=== PATIENT | male | born 1970 | race African-American/Black ===

== ENCOUNTER 2017-05-14 22:20 | Observation (INO) | payer OTHER ==
[2017-05-14 22:39] VITALS: BMI 23.7
--- NOTE | 2017-05-14 23:12 | PDOC ---
History of Present Illness - General History Source: Patient Exam Limitations: No Limitations <Keisha Al - Last Filed: 05/15/17 02:03> <Gretchen Mancilla - Last Filed: 05/15/17 02:48> - General Chief Complaint: Respiratory Stated Complaint: CHEST PAIN Time Seen by Provider: 05/14/17 22:42 - History of Present Illness Initial Comments: 05/14/17 23:34 The patient is a 46 year old male with history significant for anemia brought in by EMS complaining of chest tightness and shortness of breath that began this evening. He also reports feeling lightheaded this evening and sat down on the couch. He states he "fainted" while lying down, unclear whether he actually lost consciousness. On evaluation, his symptoms are resolved. He denies any physical complaint. Does not follow with a PCP (Keisha Al) Past History <Keisha Al - Last Filed: 05/15/17 02:03> - Past Medical History Anemia: Yes COPD: No - Suicide/Smoking/Psychosocial Hx Smoking History: Current some day smoker Information on smoking cessation initiated: No <Gretchen Mancilla - Last Filed: 05/15/17 02:48> - Past Medical History Allergies/Adverse Reactions: Allergies Allergy/AdvReac Type Severity Reaction Status Date / Time No Known Allergies Allergy Verified 05/14/17 22:34 Home Medications: Ambulatory Orders Ferrous Sulfate [Feosol] 325 mg PO DAILY 05/14/17 Review of Systems - Review of Systems Able to Perform ROS?: Yes <Keisha Al - Last Filed: 05/15/17 02:03> <Gretchen Mancilla - Last Filed: 05/15/17 02:48> - Review of Systems Comments:: 05/14/17 23:41 CONSTITUTIONAL: Absent: fever, chills, diaphoresis, generalized weakness, malaise, loss of appetite HEENT: Absent: rhinorrhea, nasal congestion, throat pain, throat swelling, difficulty swallowing, mouth swelling, ear pain, eye pain, visual Changes CARDIOVASCULAR: Present: chest pain (resolved), lightheadedness (resolved) Absent: palpitations, irregular heart rate, peripheral edema RESPIRATORY: Absent: cough, shortness of breath, dyspnea with exertion, orthopnea, wheezing, stridor, hemoptysis GASTROINTESTINAL: Absent: abdominal pain, abdominal distension, nausea, vomiting, diarrhea, constipation, melena, hematochezia GENITOURINARY: Absent: dysuria, frequency, urgency, hesitancy, hematuria, flank pain, genital pain MUSCULOSKELETAL: Absent: myalgia, arthralgia, joint swelling SKIN: Absent: rash, itching, pallor HEMATOLOGIC/IMMUNOLOGIC: Absent: easy bleeding, easy bruising, lymphadenopathy, frequent infections ENDOCRINE: Absent: unexplained weight gain, unexplained weight loss, heat intolerance, cold intolerance NEUROLOGIC: Absent: headache, focal weakness or paresthesias, dizziness, unsteady gait, seizure, mental status changes, bladder or bowel incontinence PSYCHIATRIC: Absent: anxiety, depression, suicidal or homicidal ideation, hallucinations. (Keisha Al) *Physical Exam <Keisha Al - Last Filed: 05/15/17 02:03> <Gretchen Mancilla - Last Filed: 05/15/17 02:48> - Vital Signs Last Vital Signs Temp Pulse Resp BP Pulse Ox 98.1 F 78 18 123/68 100 05/14/17 22:35 05/14/17 22:35 05/14/17 22:35 05/14/17 22:35 05/14/17 22:35 - Physical Exam Comments: 05/14/17 23:42 GENERAL: Well developed, well nourished. Awake and alert. No acute distress. HEENT: Normocephalic, atraumatic. PERRLA, EOMI. No conjunctival pallor. Sclera are non- icteric. Moist mucous membranes. Oropharynx is clear. NECK: Supple. Full ROM. No JVD. Carotid pulses 2+ and symmetric, without bruits. No thyromegaly. No lymphadenopathy. CARDIOVASCULAR: Regular rate and rhythm. No murmurs, rubs, or gallops. Distal pulses are 2+ and symmetric. PULMONARY: No evidence of respiratory distress. Lungs clear to auscultation bilaterally. No wheezing, rales or rhonchi. ABDOMINAL: Soft. Non-tender. Non-distended. No rebound or guarding. No organomegaly. Normoactive bowel sounds. MUSCULOSKELETAL Normal range of motion at all joints. No bony deformities or tenderness. No CVA tenderness. EXTREMITIES: No cyanosis. No clubbing. No edema. No calf tenderness. SKIN: Warm and dry. Normal capillary refill. No rashes. No jaundice. NEUROLOGICAL: Alert, awake, appropriate. Cranial nerves 2-12 intact. No deficits to light touch and temperature in face, upper extremities and lower extremities. No motor deficits in the in face, upper extremities and lower extremities. Normoreflexic in the upper and lower extremities. Normal speech. Toes are down- going bilaterally. Gait is normal without ataxia. PSYCHIATRIC: Cooperative. Good eye contact. Appropriate mood and affect. 05/15/17 02:03 Rectal exam refused. (Keisha Al) Heart Score/ECG Review <Keisha Al - Last Filed: 05/15/17 02:03> <Gretchen Mancilla - Last Filed: 05/15/17 02:48> #1 05/14/17 23:43 EKG obtained 22:32 Normal sinus rhythm 80 bpm. Normal EKG. (Keisha Al) ED Treatment Course - LABORATORY CBC & Chemistry Diagram: 05/14/17 23:48 05/14/17 23:48 <Keisha Al - Last Filed: 05/15/17 02:03> - LABORATORY CBC & Chemistry Diagram: 05/14/17 23:48 05/14/17 23:48 <Gretchen Mancilla - Last Filed: 05/15/17 02:48> - ADDITIONAL ORDERS Additional order review: Laboratory Results 05/15/17 05/14/17 05/14/17 01:43 23:48 23:48 PT with INR 11.50 INR 1.02 D-Dimer 477 Sodium Potassium Chloride Carbon Dioxide Anion Gap BUN Creatinine Creat Clearance w eGFR Random Glucose Calcium Total Bilirubin AST ALT Alkaline Phosphatase Creatine Kinase Creatine Kinase Index CK-MB (CK-2) Troponin I Total Protein Albumin Blood Type O POSITIVE Antibody Screen Negative Crossmatch See Detail 05/14/17 05/14/17 23:48 23:48 PT with INR INR D-Dimer Sodium 140 Potassium 4.2 Chloride 104 Carbon Dioxide 25 Anion Gap 11 BUN 17 Creatinine 1.2 Creat Clearance w eGFR > 60 Random Glucose 90 Calcium 8.7 Total Bilirubin 0.2 AST 23 ALT 18 Alkaline Phosphatase 73 Creatine Kinase 242 Creatine Kinase Index 0.5 CK-MB (CK-2) 1.412 Troponin I < 0.02 Total Protein 7.7 Albumin 3.7 Blood Type Antibody Screen Crossmatch 05/14/17 23:48 RBC 4.06 MCV 59.4 L MCHC 26.6 L RDW 20.7 H MPV 8.6 Neutrophils % 56.4 Lymphocytes % 21.0 Monocytes % 6.7 Eosinophils % 13.9 H Basophils % 2.0 - RADIOLOGY Radiology Studies Ordered: Category Date Time Status CHEST PA & LAT [RAD] Stat Radiology 05/15/17 00:14 Taken - Medications Given in the ED: ED Medications Discontinued Medications Generic Name Dose Route Start Last Admin Trade Name Benedictoq PRN Reason Stop Dose Admin Pantoprazole Sodium 40 mg 05/15/17 02:17 05/15/17 02:23 Protonix Iv IVPUSH 05/15/17 02:18 40 mg ONCE ONE Administration *DC/Admit/Observation/Transfer <Keisha Al - Last Filed: 05/15/17 02:03> - Discharge Dispostion Admit: Yes <Gretchen Mancilla - Last Filed: 05/15/17 02:48> Diagnosis at time of Disposition: Lightheadedness Anemia Qualifiers: Anemia type: iron deficiency Iron deficiency anemia type: other iron deficiency Qualified Code(s): D50.8 - Other iron deficiency anemias - Discharge Dispostion Decision to Admit order Date/Time: Decision to Admit Order Category Date Time Status Decision to Admit to Hospital Routine Admission 05/15/17 02:16 Active - Attestations Scribe Attestion: 05/14/17 23:43 Documentation prepared by Keisha Al, acting as medical receptionist for Gretchen Mancilla MD. (Keisha Al)
[2017-05-15 00:22] LABS: ALBUMIN 3.7 g/dl (3.4-5.0); ALK PHOS 73 U/L (45-117); ANION GAP 11 (8-16); BILIRUBIN,TOTAL 0.2 mg/dL (0.2-1.0); BLOOD UREA NITROGEN 17 mg/dL (7-18); CALCIUM 8.7 mg/dL (8.5-10.1); CHLORIDE 104 mmol/L (98-107); CO2 25 mmol/L (21-32); CREATININE 1.2 mg/dL (0.7-1.3); GLUCOSE,RANDOM 90 mg/dL (74-106); POTASSIUM 4.2 mmol/L (3.5-5.1); SGOT/AST 23 U/L (15-37); SGPT/ALT 18 U/L (12-78); SODIUM 140 mmol/L (136-145); TOT PROT 7.7 g/dl (6.4-8.2)
[2017-05-15 00:30] LABS: INR 1.02 (0.82-1.09); PROTHROMBIN TIME (PATIENT) 11.5 SEC (9.98-11.88)
[2017-05-15 00:37] LABS: EOS % 13.9 % (0-4.5); HEMATOCRIT 24.1 % (35.4-49); MCHC 26.6 g/dl (32.0-35.9); MEAN CELL VOLUME 59.4 fl (80-96); MEAN PLT VOLUME 8.6 fl (7.5-11.1); MONO % 6.7 % (3.8-10.2); NEUT % 56.4 % (42.8-82.8); PLATELET COUNT 333 K/MM3 (134-434); RBC 4.06 M/mm3 (4.00-5.60); RDW 20.7 % (11.9-15.9); WHITE BLOOD COUNT 7.2 K/mm3 (4.0-10.0)
[2017-05-15 00:43] LABS: MCH 15.8 pg (25.7-33.7)
[2017-05-15 00:51] LABS: ADD RBC MORPHOLOGY YES; HEMOGLOBIN 6.4 GM/dL (11.7-16.9)
[2017-05-15 01:05] LABS: ANISOCYTOSIS 2+
[2017-05-15] MEDS ORDERED: PANTOPRAZOLE SODIUM 40 MG VIAL IVPUSH ONE (02:17)
--- NOTE | 2017-05-15 02:39 | HP ---
CHIEF COMPLAINT: weakness HISTORY OF PRESENT ILLNESS: 46 y/o M w/PMH of anemia presents to the ER w/ c/o feeling weakness since earlier today. He repeatedly states "I don't feel well" but does not give much further history. He states he was feeling light-headed earlier today and was laying on couch and is not sure if he fainted but upon waking up to be sure he was ok came to the ER via taxi. Pt reports having anemia in the past and was seen by doctors at [facility] in the past 6 months including GI and heme. He states he had colonoscopy in the last 6 months with no findings. He also complained of abdominal pain after eating M&Ms earlier today. Denies blood in stool or urine. Further history was difficult to obtain. ER course was notable for: (1) protonix, CXR (2) (3) Recent Travel: denies PAST MEDICAL HISTORY: anemia PAST SURGICAL HISTORY: unknown Social History: Smoking: current smoker Alcohol: current drinker Drugs: denies Family History: unknown Allergies No Known Allergies Allergy (Verified 05/14/17 22:34) HOME MEDICATIONS: Home Medications Medication Instructions Recorded Ferrous Sulfate [Feosol] 325 mg PO DAILY 05/14/17 REVIEW OF SYSTEMS Pt not very forthcoming with history. Continuously says "I don't feel well" and does not answer most questions. PHYSICAL EXAMINATION Vital Signs - 24 hr 05/14/17 22:35 Temperature 98.1 F Pulse Rate 78 Respiratory 18 Rate Blood Pressure 123/68 O2 Sat by Pulse 100 Oximetry (%) Physical Exam Pt deferred physical exam. Laboratory Results - last 24 hr 05/14/17 05/14/17 05/14/17 23:48 23:48 23:48 WBC 7.2 RBC 4.06 Hgb 6.4 L* Hct 24.1 L MCV 59.4 L MCH 15.8 L MCHC 26.6 L RDW 20.7 H Plt Count 333 MPV 8.6 Neutrophils % 56.4 Lymphocytes % 21.0 Monocytes % 6.7 Eosinophils % 13.9 H Basophils % 2.0 Hypochromia 3+ Anisocytosis 2+ Microcytosis 3+ PT with INR INR D-Dimer Sodium 140 Potassium 4.2 Chloride 104 Carbon Dioxide 25 Anion Gap 11 BUN 17 Creatinine 1.2 Creat Clearance w eGFR > 60 Random Glucose 90 Calcium 8.7 Total Bilirubin 0.2 AST 23 ALT 18 Alkaline Phosphatase 73 Creatine Kinase 242 Creatine Kinase Index 0.5 CK-MB (CK-2) 1.412 Troponin I < 0.02 Total Protein 7.7 Albumin 3.7 Crossmatch 05/14/17 05/14/17 05/15/17 23:48 23:48 01:43 WBC RBC Hgb Hct MCV MCH MCHC RDW Plt Count MPV Neutrophils % Lymphocytes % Monocytes % Eosinophils % Basophils % Hypochromia Anisocytosis Microcytosis PT with INR 11.50 INR 1.02 D-Dimer 477 Sodium Potassium Chloride Carbon Dioxide Anion Gap BUN Creatinine Creat Clearance w eGFR Random Glucose Calcium Total Bilirubin AST ALT Alkaline Phosphatase Creatine Kinase Creatine Kinase Index CK-MB (CK-2) Troponin I Total Protein Albumin Crossmatch See Detail Imaging: CXR 05/15/17 no acute pathology as per my read ASSESSMENT/PLAN: 46 y/o M w/PMH of anemia presents to the ER w/ c/o feeling weakness since earlier today. Found to be anemic to 6.4. -Symptomatic microcytic anemia -1 unit PRBC -monitor H/H, goal Hgb >7 -Iron studies, Vit B12, Folate, TSH -GI consult -Will need records from [facility] for colonoscopy and any heme workup done there -f/u FOBT -pt refusing CONRAD -protonix 40 mg IV bid -DVT ppx -SCDs and ambulation -FEN -no fluids, receiving PRBC at this time -monitor electrolytes -NPO -Dispo: Observation in m/s Visit type - Emergency Visit Emergency Visit: Yes Care time: The patient presented to the Emergency Department on the above date and was hospitalized for further evaluation of their emergent condition. - New Patient This patient is new to me today: Yes Date on this admission: 05/15/17 - Critical Care Critical Care patient: No Hospitalist Screening - Colonoscopy Questionnaire Colonoscopy Questionnaire: Colonoscopy Questionnaire - Patient: 50 - 75 years old and never had a screening colonoscopy: Unknown History of colon or rectal polyps, or CA: Unknown History of IBD, Crohn's disease or UC: Unknown History of abdominal radiation therapy as a child: Unknown - Relative: 1 with colon or rectal CA, or polyps at age 60 or younger: Unknown Colon or rectal CA diagnosed at age 45 or younger: Unknown Multiple relatives with colon or rectal CA: Unknown - Outcome: Screening Result: Negative Screen
--- NOTE | 2017-05-15 02:39 | PN ---
Teaching Attending Note Name of Resident: Finn Thompson ATTENDING PHYSICIAN STATEMENT I saw and evaluated the patient. I reviewed the resident's note and discussed the case with the resident. I agree with the resident's findings and plan as documented. SUBJECTIVE: 46 M with Pmhx of Anemia who presents with lightheadedness and dizziness. States he felt like he would "pass out" at home. Denies any chest pain or pressure. Pt. States he was worked up for his anemia at [facility]. Notes he has Colonscopy 6 months ago, at [facility] which was normal. Does not recall any of the names of the physicians he saw there. Pt. stated he did not want to be questioned further and denied any further history. Denied any black or bloody stools. No hematemsis or hematuria. OBJECTIVE: Physical: VS: Vital Signs Period Temp Pulse Resp BP Sys/Calloway Pulse Ox Last 24 Hr 98.1 F 78 18 123/68 100 GEN: NAD, Resting in bed, AA0X3 HEENT: NCAT, PERRL, Throat without erythema or exudates CARD: RRR S1, S2 RESP: CTAB ABD: BSx4, NTD to palpation EXT: - C/C/E RECTAL: REFUSED CBCD WBC 7.2 K/mm3 (4.0-10.0) 05/14/17 23:48 RBC 4.06 M/mm3 (4.00-5.60) 05/14/17 23:48 Hgb 6.4 GM/dL (11.7-16.9) L* 05/14/17 23:48 Hct 24.1 % (35.4-49) L 05/14/17 23:48 MCV 59.4 fl (80-96) L 05/14/17 23:48 MCHC 26.6 g/dl (32.0-35.9) L 05/14/17 23:48 RDW 20.7 % (11.9-15.9) H 05/14/17 23:48 Plt Count 333 K/MM3 (134-434) 05/14/17 23:48 MPV 8.6 fl (7.5-11.1) 05/14/17 23:48 CMP Sodium 140 mmol/L (136-145) 05/14/17 23:48 Potassium 4.2 mmol/L (3.5-5.1) 05/14/17 23:48 Chloride 104 mmol/L (98-107) 05/14/17 23:48 Carbon Dioxide 25 mmol/L (21-32) 05/14/17 23:48 Anion Gap 11 (8-16) 05/14/17 23:48 BUN 17 mg/dL (7-18) 05/14/17 23:48 Creatinine 1.2 mg/dL (0.7-1.3) 05/14/17 23:48 Creat Clearance w eGFR > 60 (>60) 05/14/17 23:48 Random Glucose 90 mg/dL (74-106) 05/14/17 23:48 Calcium 8.7 mg/dL (8.5-10.1) 05/14/17 23:48 Total Bilirubin 0.2 mg/dL (0.2-1.0) 05/14/17 23:48 AST 23 U/L (15-37) 05/14/17 23:48 ALT 18 U/L (12-78) 05/14/17 23:48 Alkaline Phosphatase 73 U/L (45-117) 05/14/17 23:48 Total Protein 7.7 g/dl (6.4-8.2) 05/14/17 23:48 Albumin 3.7 g/dl (3.4-5.0) 05/14/17 23:48 CARDIAC ENZYMES Creatine Kinase 242 IU/L (39-308) 05/14/17 23:48 Troponin I < 0.02 ng/ml (0.00-0.05) 05/14/17 23:48 EKG- NSR no acute process CXR- No acute process ASSESSMENT AND PLAN: 46 M with pmhx of anemia presents with lightheadedness/dizziness, being admitted for symptomatic anemia 1.) Symptomatic Anemia - Iron studies - Transfuse 1 U - Protonix - Keep Hgb >7 - Type & Screen - Coags - Repeat CBC post tx - GI Consult 2.) Dvt ppx - Ambulate Place in Obs
[2017-05-15 09:58] VITALS: BP 116/84; PULSE 74; TEMP 98.7
[2017-05-15] MEDS ORDERED: PANTOPRAZOLE SODIUM 40 MG VIAL IVPUSH SCH (10:00)
--- NOTE | 2017-05-15 15:06 | DS ---
Physical Exam: SUBJECTIVE: Patient refused in physical exam or conversation with me or other doctors. OBJECTIVE: Vital Signs Period Temp Pulse Resp BP Sys/Calloway Pulse Ox Last 24 Hr 98.1 F-98.8 F 74-80 18-20 116-138/66-84 100-100 PHYSICAL EXAM pt refused. LABS Laboratory Results - last 24 hr 05/14/17 05/14/17 05/14/17 23:48 23:48 23:48 WBC 7.2 RBC 4.06 Hgb 6.4 L* Hct 24.1 L MCV 59.4 L MCH 15.8 L MCHC 26.6 L RDW 20.7 H Plt Count 333 MPV 8.6 Neutrophils % 56.4 Lymphocytes % 21.0 Monocytes % 6.7 Eosinophils % 13.9 H Basophils % 2.0 Hypochromia 3+ Anisocytosis 2+ Microcytosis 3+ PT with INR INR D-Dimer Sodium 140 Potassium 4.2 Chloride 104 Carbon Dioxide 25 Anion Gap 11 BUN 17 Creatinine 1.2 Creat Clearance w eGFR > 60 Random Glucose 90 Calcium 8.7 Total Bilirubin 0.2 AST 23 ALT 18 Alkaline Phosphatase 73 Creatine Kinase 242 Creatine Kinase Index 0.5 CK-MB (CK-2) 1.412 Troponin I < 0.02 Total Protein 7.7 Albumin 3.7 Blood Type Antibody Screen Crossmatch 05/14/17 05/14/17 05/15/17 23:48 23:48 01:43 WBC RBC Hgb Hct MCV MCH MCHC RDW Plt Count MPV Neutrophils % Lymphocytes % Monocytes % Eosinophils % Basophils % Hypochromia Anisocytosis Microcytosis PT with INR 11.50 INR 1.02 D-Dimer 477 Sodium Potassium Chloride Carbon Dioxide Anion Gap BUN Creatinine Creat Clearance w eGFR Random Glucose Calcium Total Bilirubin AST ALT Alkaline Phosphatase Creatine Kinase Creatine Kinase Index CK-MB (CK-2) Troponin I Total Protein Albumin Blood Type O POSITIVE Antibody Screen Negative Crossmatch See Detail HOSPITAL COURSE: Date of Admission:05/15/17 Date of Discharge: 05/15/17 Patient was admitted to the hospital due to lightheadedness and fatigue was found to have Hgb 6.5 and 2 units of blood was transfused to the patients . pt is agitated and refused to be examined or any blood work to be done. he signed against medical advice. All risk and disadvantages has been explained to the patient including . Minutes to complete discharge: 35 Discharge Summary Reason For Visit: LIGHTHEADEDNESS,ANEMIA Condition: Fair - Instructions Diet, Activity, Other Instructions: Patient signed against medical advice all risk and disadvantages has been explained to the patient including . Disposition: AGAINST MEDICAL ADVICE - Home Medications Comprehensive Discharge Medication List: Ambulatory Orders Ferrous Sulfate [Feosol] 325 mg PO DAILY 05/14/17 This patient is new to me today: Yes Date on this admission: 05/15/17 Emergency Visit: Yes ED Registration Date: 05/15/17 Care time: The patient presented to the Emergency Department on the above date and was hospitalized for further evaluation of their emergent condition. Critical Care patient: No - Discharge Referral Referred to [facility] Med P.C.: No
--- NOTE | 2017-05-15 15:08 | EKG ---
Test Reason : Blood Pressure : / mmHG Vent. Rate : 080 BPM Atrial Rate : 080 BPM P-R Int : 134 ms QRS Dur : 088 ms QT Int : 382 ms P-R-T Axes : -01 037 025 degrees QTc Int : 440 ms NORMAL SINUS RHYTHM NORMAL ECG WHEN COMPARED WITH ECG OF 03-MAR-2008 07:50, ST NO LONGER ELEVATED IN ANTEROLATERAL LEADS Confirmed by MD Rivas Daniel ([id number]) on 05/15/2017 3:07:58 PM Referred By: Confirmed By:Michael Rivas MD
--- NOTE | 2017-05-15 15:12 | PN ---
Teaching Attending Note Name of Resident: Cristofer Lim ATTENDING PHYSICIAN STATEMENT I saw and evaluated the patient. I reviewed the resident's note and discussed the case with the resident. I agree with the resident's findings and plan as documented. SUBJECTIVE: pt refused interview and exam 46 y/o man wiht h/o chronic anemia, who presented with light headedness and not feeling well . he was found to have microcytic anemia with Hb of 6.4 he was transfused 2 unis of RBC, and refused further w/u and blood wok. he wanted to leave A. risks were explained to him by resident
== END 2017-05-15 14:31 | disposition left against medical advice (07) ==
LOC: JER 22:20 → JERBED 05-15 02:49 → J6S 05-15 04:31
PROVIDERS: ADMIT Internal Medicine; ATTEND Internal Medicine
PROC: 30233N1 Transfusion of Nonautologous Red Blood Cells into Peripheral Vein, Percutaneous Approach (ICD-10-PCS; principal; 2017-05-15)
DX: D50.8 Other iron deficiency anemias (principal); R42 Dizziness and giddiness; F17.210 Nicotine dependence, cigarettes, uncomplicated
CPT/HCPCS: 36415; 36430; 71046-TC-FY; 80053; 82550; 82553; 84484; 85025; 85379; 85610; 86850; 86900; 86901; 86922; 93005; 93010; 99284-25; G0378; P9038; P9058

== ENCOUNTER 2020-02-26 14:23 | Emergency (ER) | payer OTHER ==
[2020-02-26 14:30] VITALS: BP 164/79; PULSE 90; TEMP 99.1; BMI 20.7
== END 2020-02-26 15:45 | disposition home or self-care (01) ==
LOC: JERFT 14:23
DX: Z48.02 Encounter for removal of sutures (principal); T81.31XA Disruption of external operation (surgical) wound, not elsewhere classified, initial encounter
CPT/HCPCS: 99282-25

== ENCOUNTER 2022-05-01 05:30 | Emergency (ER) | payer OTHER ==
[2022-05-01 05:36] VITALS: TEMP 98; BMI 23.0
[2022-05-01] MEDS ORDERED: ACETAMINOPHEN 1000 MG/100 ML BAG IVPB ONE (06:00)
[2022-05-01] MEDS ORDERED: morphine SULFATE 4 MG/ML VIAL IVPUSH ONE (06:02)
[2022-05-01] MEDS ORDERED: morphine SULFATE 4 MG/ML VIAL ONE (06:03)
[2022-05-01] MEDS ORDERED: ACETAMINOPHEN INJECTION 100 ML IVPB ONE (06:03)
[2022-05-01] MEDS ORDERED: ONDANSETRON 4 MG/2 ML VIAL ONE (06:21)
[2022-05-01] MEDS ORDERED: ONDANSETRON 4 MG/2 ML VIAL IVPUSH ONE (06:21)
[2022-05-01 07:15] LABS: HEMATOCRIT 34.5 % (35.4-49); HEMOGLOBIN 10.7 GM/dL (11.7-16.9); LYMPH % 32.8 % (8-40); MCH 20.4 pg (25.7-33.7); MCHC 30.9 g/dl (32.0-35.9); MEAN CELL VOLUME 65.9 fl (80-96); MEAN PLT VOLUME 8.1 fl (7.5-11.1); NEUT % 54.2 % (42.8-82.8); PLATELET COUNT 456 10^3/uL (134-434); RBC 5.23 M/mm3 (4.00-5.60); RDW 21.2 % (11.9-15.9); WHITE BLOOD COUNT 7.1 K/mm3 (4.0-10.0)
[2022-05-01] MEDS ORDERED: morphine CARPU-JECT 2 MG/1 ML DISP.SYRIN IVPUSH ONE (07:19)
[2022-05-01 07:26] LABS: INR 0.92 (0.83-1.09); PROTHROMBIN TIME (PATIENT) 10.7 SEC (9.7-13.0)
[2022-05-01 07:30] LABS: ACTIVATED PTT 35.7 SECONDS (25.2-36.5)
[2022-05-01] MEDS ORDERED: HYDROmorphone HCL CARPU-JECT 2 MG/1 ML DISP.SYRIN IVPUSH ONE ×3 (07:32→15:20)
[2022-05-01] MEDS ORDERED: HYDROmorphone HCl 2 MG/ML VIAL ONE ×2 (07:33→11:09)
[2022-05-01 07:36] LABS: CALCIUM 9.1 mg/dL (8.5-10.1)
[2022-05-01 07:37] LABS: ALBUMIN 3.6 g/dl (3.4-5.0); BLOOD UREA NITROGEN 13.2 mg/dL (7-18)
[2022-05-01 07:41] LABS: TOT PROT 7.7 g/dl (6.4-8.2)
[2022-05-01 07:42] LABS: BILIRUBIN,TOTAL 0.2 mg/dL (0.2-1)
[2022-05-01 08:55] LABS: ANISOCYTOSIS 3+; MACROCYTOSIS 0; OVALOCYTE 1+
[2022-05-01] MEDS ORDERED: LACTATED RINGERS SOLUTION 1000 ML INFUS.BAG IV ONE (15:23)
[2022-05-01 18:03] VITALS: BP 151/98; PULSE 71; RESP 14
== END 2022-05-01 18:00 | disposition left against medical advice (07) ==
LOC: JER 05:30 → JERBED 16:57 → UNDOADMIN 16:57 → UNDODISIN 18:00 → JER 18:00
PROC: 3E033GC Introduction of Other Therapeutic Substance into Peripheral Vein, Percutaneous Approach (ICD-10-PCS; principal; 2022-05-01)
DX: R10.84 Generalized abdominal pain (principal); R11.2 Nausea with vomiting, unspecified
CPT/HCPCS: 36415; 71275-TC; 74174-TC; 80053; 84484; 85025; 85610; 85730; 86850; 86900; 86901; 93005; 93010; 99285-25; C9803-CS; Q9967; U0003; U0005

== ENCOUNTER 2022-05-26 03:40 | Inpatient (IN) | payer OTHER ==
[2022-05-26 03:54] VITALS: BP 145/101; PULSE 88; RESP 18; TEMP 98.8; BMI 20.7
[2022-05-26] MEDS ORDERED: ACETAMINOPHEN 1000 MG/100 ML BAG IVPB ONE (04:21)
[2022-05-26] MEDS ORDERED: ONDANSETRON 4 MG/2 ML VIAL IVPB ONE (04:29)
[2022-05-26] MEDS ORDERED: ONDANSETRON 4 MG/2 ML VIAL ONE (04:33)
[2022-05-26] MEDS ORDERED: ACETAMINOPHEN INJECTION 100 ML IVPB ONE (04:33)
[2022-05-26 04:54] LABS: BASO % 0.5 % (0-2.0); EOS % 0.2 % (0-4.5); HEMATOCRIT 39.4 % (35.4-49); LYMPH % 14.1 % (8-40); MCHC 30.3 g/dl (32.0-35.9); MEAN CELL VOLUME 64.9 fl (80-96); MEAN PLT VOLUME 8.4 fl (7.5-11.1); MONO % 8.8 % (3.8-10.2); NEUT % 76.4 % (42.8-82.8); PLATELET COUNT 360 10^3/uL (134-434); RBC 6.07 M/mm3 (4.00-5.60); RDW 20.6 % (11.9-15.9)
[2022-05-26 05:03] LABS: INR 0.97 (0.83-1.09); PROTHROMBIN TIME (PATIENT) 11.2 SEC (9.7-13.0)
[2022-05-26 05:05] LABS: ACTIVATED PTT 32.2 SECONDS (25.2-36.5)
[2022-05-26 05:15] LABS: ALBUMIN 4.2 g/dl (3.4-5.0); CALCIUM 9.8 mg/dL (8.5-10.1)
[2022-05-26 05:16] LABS: MAGNESIUM 2.1 mg/dL (1.8-2.4)
[2022-05-26 05:18] LABS: CREATININE 1.1 mg/dL (0.55-1.3)
[2022-05-26 05:20] LABS: BILIRUBIN,TOTAL 0.2 mg/dL (0.2-1); TOT PROT 8.7 g/dl (6.4-8.2)
[2022-05-26 05:42] LABS: MCH 19.7 pg (25.7-33.7)
[2022-05-26 09:06] LABS: ANISOCYTOSIS 3+; MACROCYTOSIS 0
[2022-05-26] MEDS ORDERED: morphine CARPU-JECT 2 MG/1 ML DISP.SYRIN IVPUSH ONE (09:53)
[2022-05-26] MEDS ORDERED: D5-1/2NS+20 MEQ KCL - 20 MEQ/1,000 ML INFUS.BAG IV SCH (13:00)
[2022-05-26] MEDS ORDERED: HEPARIN NA (PORCINE) 5,000 UNITS/ML 1ML VIAL SQ SCH (22:00)
== END 2022-05-26 13:26 | disposition left against medical advice (07) | DRG 247 ==
LOC: JER 03:40 → JERBED 10:02
PROVIDERS: ADMIT Internal Medicine; ATTEND Internal Medicine
DX: K56.609 Unspecified intestinal obstruction, unspecified as to partial versus complete obstruction (principal); Z53.29 Procedure and treatment not carried out because of patient's decision for other reasons
CPT/HCPCS: 0241U-QW; 36415; 71045-TC-FY; 74177-TC; 80053; 83690; 83735; 84100; 85025; 85610; 85730; 86850; 86900; 86901; 99285-25

== ENCOUNTER 2022-05-31 19:05 | Emergency (ER) | payer OTHER ==
[2022-05-31 20:06] VITALS: BP 136/102; PULSE 96; RESP 20; TEMP 98.2; BMI 23.9
== END 2022-05-31 23:53 | disposition left against medical advice (07) ==
LOC: JER 19:05
DX: R10.9 Unspecified abdominal pain (principal)
CPT/HCPCS: 74176-TC; 93005; 93010; 99284-25

== ENCOUNTER 2023-11-09 10:17 | Emergency (ER) | payer OTHER ==
[2023-11-09 10:38] VITALS: BP 142/92; PULSE 95; RESP 18; TEMP 98.3; BMI 26.6
[2023-11-09] MEDS ORDERED: ACETAMINOPHEN INJECTION 100 ML ONE (11:27)
[2023-11-09] MEDS ORDERED: ONDANSETRON 4 MG/2 ML VIAL ONE (11:27)
[2023-11-09] MEDS: ACETAMINOPHEN 1000 MG/100 ML BAG IVPB ONE (11:38)
[2023-11-09] MEDS: ONDANSETRON 4 MG/2 ML VIAL IVPUSH ONE (11:40)
[2023-11-09] MEDS: KETOROLAC TROMETHAMINE 30 MG/1 ML VIAL IM ONE (11:41)
[2023-11-09 12:03] LABS: BASO % 0.4 % (0-2.0); EOS % 0.6 % (0-4.5); HEMATOCRIT 46.9 % (35.4-49); HEMOGLOBIN 15.4 GM/dL (11.7-16.9); LYMPH % 12.1 % (8-40); MCH 26.7 pg (25.7-33.7); MCHC 32.7 g/dl (32.0-35.9); MEAN CELL VOLUME 81.6 fl (80-96); MEAN PLT VOLUME 7.5 fl (7.5-11.1); MONO % 5.2 % (3.8-10.2); NEUT % 81.7 % (42.8-82.8); PLATELET COUNT 323 10^3/uL (134-434); RBC 5.75 M/mm3 (4.00-5.60); RDW 17.8 % (11.9-15.9); WHITE BLOOD COUNT 8.3 K/mm3 (4.0-10.0)
[2023-11-09 12:21] LABS: CHLORIDE 107 mmol/L (98-107); SODIUM 136 mmol/L (136-145)
[2023-11-09 12:23] LABS: ALBUMIN 3.9 g/dl (3.4-5.0)
[2023-11-09 12:24] LABS: ANION GAP 4 mmol/L (4-13); BLOOD UREA NITROGEN 10.1 mg/dL (7-18); CO2 25 mmol/L (21-32); GLUCOSE,RANDOM 128 mg/dL (74-106); POTASSIUM 7.8 mmol/L (3.5-5.1)
[2023-11-09 12:27] LABS: CREATININE 1.1 mg/dL (0.55-1.3)
[2023-11-09 12:28] LABS: BILIRUBIN,TOTAL 0.3 mg/dL (0.2-1); TOT PROT 8.8 g/dl (6.4-8.2)
[2023-11-09 12:29] LABS: ALK PHOS 78 U/L (45-117)
[2023-11-09 12:59] LABS: LACTIC ACID 2.8 mmol/L (0.4-2.0)
[2023-11-09 13:00] LABS: SGOT/AST 91 U/L (15-37); SGPT/ALT 28 U/L (13-61)
[2023-11-09 13:42] LABS: POTASSIUM 4.5 mmol/L (3.5-5.1)
[2023-11-09 13:43] LABS: CALCIUM 9.1 mg/dL (8.5-10.1)
[2023-11-09 13:44] LABS: BLOOD UREA NITROGEN 9.5 mg/dL (7-18)
== END 2023-11-09 14:31 | disposition left against medical advice (07) ==
LOC: JER 10:17
PROC: 3E033NZ Introduction of Analgesics, Hypnotics, Sedatives into Peripheral Vein, Percutaneous Approach (ICD-10-PCS; principal; 2023-11-09)
PROC: 3E033GC Introduction of Other Therapeutic Substance into Peripheral Vein, Percutaneous Approach (ICD-10-PCS; 2023-11-09)
DX: R10.32 Left lower quadrant pain (principal); R11.0 Nausea
CPT/HCPCS: 36415; 80048; 80053; 83605; 83690; 85025; 93005; 93010; 99284-25; J0131